=== PATIENT | female | born 1985 | race American Indian/Alaskan Native ===

== ENCOUNTER 2018-11-07 15:16 | Emergency (ER) | payer OTHER ==
[~2018-11-07] VITALS: Ht 152.4 cm; Wt 79.4 kg
[~2018-11-07 15:16] MED LIST: CYCLOBENZAPRINE10 MG PO; NORCO 5-325 TA1 EACH PO; NORCO 7.5-3251 EACH PO
== END 2018-11-07 17:11 | disposition home or self-care (01) ==
LOC: ED 15:16
PROC: 2W3KX1Z Immobilization of Left Finger using Splint (ICD-10-PCS; principal; 2018-11-07)
DX: S61.217A Laceration without foreign body of left little finger without damage to nail, initial encounter (principal); W26.0XXA Contact with knife, initial encounter; Y99.0 Civilian activity done for income or pay
CPT/HCPCS: 29130; 90471; 90715; 99282-25

== ENCOUNTER 2023-06-11 19:05 | Emergency (ER) | payer OTHER ==
[~2023-06-11] VITALS: Ht 152.4 cm; Wt 83.3 kg
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
[~2023-06-11 19:05] MED LIST changes: +IMODIUM A-D2 M2 PO; +ONDANSETRON ODT4 MG PO
[2023-06-11 19:34] LABS: EOSINOPHILS 0.3 % (0-6); HEMOGLOBIN 11.1 g/dL (12.0-18.0); LYMPHOCYTES 33.6 % (24-44); MCH 21.5 (27-36); MCHC 30.8 g/dl (30-36); MCV 69.8 fl (81-99); MONOCYTES 6.2 % (0-12); NEUTROPHILS 58.9 % (39-80); PLATELET COUNT 502 K/uL (140-440); RBC 5.15 M/ul (4.3-5.7); RDW 23.9 (10.5-15.0)
[2023-06-11 19:47] LABS: ALBUMIN 3.4 g/dL (3.4-5.0); ALBUMIN/GLOBULIN RATIO 0.81 (1.1-2.4); ANION GAP 18.2 (7-21); BILIRUBIN, TOTAL 0.4 ng/dL (0.2-1.0); BUN/CREATININE RATIO 3.52 (6.0-28.6); CALCIUM 8.6 mg/dL (8.5-10.1); CREATININE, SERUM 0.85 mg/dL (0.55-1.02); MAGNESIUM 1.4 mg/dL (1.8-2.4); POTASSIUM 3.2 mmol/L (3.5-5.1); PROTEIN, TOTAL 7.6 g/dL (6.4-8.2)
[2023-06-11 21:36] LABS: BILIRUBIN, URINE NEGATIVE (negative); BLOOD/HGB, URINE SMALL (Negative); KETONE, URINE NEGATIVE (Negative); LEUK ESTERASE, URINE NEGATIVE (negative); NITRITE, URINE NEGATIVE (negative)
[2023-06-11 21:54] VITALS: BP 127/72
== END 2023-06-11 21:55 | disposition home or self-care (01) ==
LOC: ED 19:05
PROVIDERS: Internal Medicine
DX: E86.0 Dehydration (principal); E83.42 Hypomagnesemia; Z79.899 Other long term (current) drug therapy
CPT/HCPCS: 36415; 80053; 81003; 82553; 83735; 85025; J1790; J2405; J3411; J7030; J7121

== ENCOUNTER 2023-06-14 20:01 | Emergency (ER) | payer OTHER ==
[~2023-06-14] VITALS: Ht 152.4 cm; Wt 83.0 kg
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
--- OUTSIDE RECORDS SUMMARY | 2023-06-14 20:11 | XMS ---
PreManage Notification: GLADIS CHING Security Sponge Maker Events No recent Security Events currently on file CRITERIA MET - [facility] - 2 Visits in 30 Days CARE PROVIDERS There are no care providers on record at this time. Edy has no Care Guidelines for this patient. [facility] (12 MO.) [facility] T[facility] NOTE: Visits indicate total known visits. ED/C VISIT TRACKING (12 MO.) [facility] COMPLAINT: - NAUSEA 06/11/2023 19:06 [facility] TYPE: Emergency COMPLAINT: - DEHYDRATED DIAGNOSES: - Dehydration - Hypomagnesemia - Nausea with vomiting, unspecified - Other terminologist (current) drug therapy 04/21/2023 09:09 [facility] TYPE: Emergency COMPLAINT: - VOMITING DIAGNOSES: - Contact with and (suspected) exposure to COVID-19 - Diarrhea, unspecified - Vomiting, unspecified INPATIENT VISIT TRACKING (12 MO.) No inpatient visits to display in this time frame [email or web address]
[2023-06-14 22:23] LABS: BASOPHILS 1.2 % (0-2); EOSINOPHILS 0.7 % (0-6); HEMATOCRIT 36.6 % (35.0-50.0); HEMOGLOBIN 11.1 g/dL (12.0-18.0); LYMPHOCYTES 22.4 % (24-44); MCH 21.4 (27-36); MCHC 30.2 g/dl (30-36); MCV 70.9 fl (81-99); MONOCYTES 7.8 % (0-12); NEUTROPHILS 67.9 % (39-80); PLATELET COUNT 501 K/uL (140-440); RBC 5.17 M/ul (4.3-5.7); RDW 24.5 (10.5-15.0)
[2023-06-14 22:31] LABS: PROTIME 12.7 Sec (11.2-14.2)
[2023-06-14 22:36] LABS: ALBUMIN 3.4 g/dL (3.4-5.0); ALBUMIN/GLOBULIN RATIO 0.83 (1.1-2.4); ANION GAP 18.8 (7-21); BILIRUBIN, TOTAL 0.4 ng/dL (0.2-1.0); BUN/CREATININE RATIO 2.73 (6.0-28.6); CALCIUM 8.6 mg/dL (8.5-10.1); CREATININE, SERUM 0.73 mg/dL (0.55-1.02); MAGNESIUM 1.7 mg/dL (1.8-2.4); POTASSIUM 2.8 mmol/L (3.5-5.1); PROTEIN, TOTAL 7.5 g/dL (6.4-8.2)
[2023-06-14] MEDS ORDERED: MAGNESIUM OXID400 M1 PO (22:45)
[2023-06-14] MEDS ORDERED: CHLORDIAZEPOXID10 MG PO (22:45)
[2023-06-14] MEDS ORDERED: ONDANSETRON ODT8 MG PO (22:45)
[2023-06-14] MEDS ORDERED: K-TAB ER20 MEQ PO (22:45)
[2023-06-15 01:05] VITALS: BP 148/92
== END 2023-06-15 01:07 | disposition home or self-care (01) ==
LOC: ED 20:01
PROVIDERS: Family Medicine
DX: F10.239 Alcohol dependence with withdrawal, unspecified (principal); Y90.9 Presence of alcohol in blood, level not specified
CPT/HCPCS: 36415; 80053; 83690; 83735; 84703; 85025; 85060; 85610; 96374; 96375; 99284-25; A9270; J1885; J2060; J2405; J3411; J3475; J3480; J7030

== ENCOUNTER 2024-04-18 09:59 | Emergency (ER) | payer OTHER ==
[~2024-04-18] VITALS: Ht 152.4 cm; Wt 89.8 kg
[~2024-04-18 09:59] MED LIST changes: +CHLORDIAZEPOXID10 MG PO; +HYDROXYZINE PAM50 MG PO; +K-TAB ER20 MEQ PO; +MAGNESIUM OXID400 M1 PO; +NALTREXONE HCL50 MG PO; +ONDANSETRON ODT8 MG PO
[2024-04-18 12:17] VITALS: BP 130/85
[2024-04-18] MEDS ORDERED: HYDROXYZINE HCL25 MG PO (12:25)
[2024-04-18] MEDS ORDERED: hydrOXYzine pamoate 25 MG CAP PO ONE (12:30)
== END 2024-04-18 12:17 | disposition home or self-care (01) ==
LOC: ED 09:59
DX: F41.9 Anxiety disorder, unspecified (principal); Z79.899 Other long term (current) drug therapy
CPT/HCPCS: 99281

== ENCOUNTER 2024-12-17 17:58 | Emergency (ER) | payer OTHER ==
[~2024-12-17] VITALS: Ht 152.4 cm; Wt 87.5 kg
[~2024-12-17 17:58] MED LIST changes: +HYDROXYZINE HCL25 MG PO
--- OUTSIDE RECORDS SUMMARY | 2024-12-17 18:04 | XMS ---
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 Edy has no Care Guidelines for this patient. [facility]mar[facility] (12 MO.) [facility] NOTE: Visits indicate total known visits. 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
[2024-12-17 18:56] LABS: BASOPHILS 0.4 % (0-2); EOSINOPHILS 0.6 % (0-6); HEMATOCRIT 32.6 % (35.0-50.0); HEMOGLOBIN 10.7 g/dL (12.0-18.0); LYMPHOCYTES 21.2 % (24-44); MCH 24.1 (27-36); MCHC 32.9 g/dl (30-36); MCV 73.2 fl (81-99); MONOCYTES 6.6 % (0-12); NEUTROPHILS 71.2 % (39-80); PLATELET COUNT 357 K/uL (140-440); RBC 4.45 M/ul (4.3-5.7); RDW 18.2 (10.5-15.0)
[2024-12-17 19:22] LABS: ALBUMIN 2.9 g/dL (3.4-5.0); ALBUMIN/GLOBULIN RATIO 0.69 (1.1-2.4); ANION GAP 12.6 (7-21); BILIRUBIN, TOTAL 1.1 mg/dL (0.2-1.0); BUN/CREATININE RATIO 4.83 (6.0-28.6); CALCIUM 8.6 mg/dL (8.5-10.1); CREATININE, SERUM 0.62 mg/dL (0.55-1.02); POTASSIUM 3.6 mmol/L (3.5-5.1); PROTEIN, TOTAL 7.1 g/dL (6.4-8.2)
[2024-12-17 20:29] VITALS: BP 150/98
--- NOTE | 2024-12-18 16:31 | EKG ---
[facility] [address] [place] [address] Signed Normal sinus rhythm Low voltage QRS Borderline ECG No previous ECGs available Confirmed by Machelle Mao MD () on 12/18/2024 4:31:32 PM Electronically Signed By: MACHELLE MAO MD 12/18/24 1631 PATIENT NAME: GLADIS CHING Electrocardiogram DATE OF : 85 PHYSICIAN: MACHELLE MAO MD REPORT #: [id number] REPORT IS CONFIDENTIAL AND NOT TO BE RELEASED WITHOUT AUTHORIZATION
== END 2024-12-17 20:29 | disposition home or self-care (01) ==
LOC: ED 17:58
PROVIDERS: Emergency Medicine
DX: M79.10 Myalgia, unspecified site (principal); D64.9 Anemia, unspecified
CPT/HCPCS: 36415; 80053; 82550; 84484; 85025; 93005; 93010; 99283

== ENCOUNTER 2025-06-30 19:16 | Emergency (ER) | payer OTHER ==
[~2025-06-30] VITALS: Ht 152.4 cm; Wt 78.0 kg
--- OUTSIDE RECORDS SUMMARY | 2025-06-30 19:24 | XMS ---
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 Edy has no Care Guidelines for this patient. Jeanmarie VISIT COUNT (12 MO.) 3 [facility] TOTAL 3 NOTE: Visits indicate total known visits. ED/C VISIT TRACKING (12 MO.) 06/30/2025 19:17 [facility] TYPE: Emergency COMPLAINT: - BODY CRAMPS 12/17/2024 17:58 [facility] TYPE: Emergency COMPLAINT: - BODY CRAMPS DIAGNOSES: - Anemia, unspecified - Myalgia, unspecified site 12/05/2024 13:57 [facility] TYPE: Emergency COMPLAINT: - ABDOMINAL PAIN INPATIENT VISIT TRACKING (12 MO.) No inpatient visits to display in this time frame [id number]
[2025-06-30] MEDS ORDERED: LACTATED RINGER'S 1,000 ML IV ONE (19:45)
[2025-06-30] MEDS ORDERED: MORPHINE SULFATE 4 MG/ML VIAL IV ONE (20:00)
[2025-06-30 20:04] LABS: BASOPHILS 0.7 % (0.1-1.2); EOSINOPHILS 0.5 % (0.7-5.8); LYMPHOCYTES 30.2 % (19.3-51.7); MCH 22.2 PG (25.6-32.2); MCHC 30.7 g/dL (32.2-35.5); MCV 72.4 fL (79.4-94.8); MONOCYTES 7.3 % (4.7-12.5); NEUTROPHILS 61.1 % (34.0-71.1); RBC 3.51 M/uL (3.93-5.22)
[2025-06-30 20:23] LABS: ALT (SGPT) 24.0 U/L (14-59); AST (SGOT) 89.0 U/L (15-37); GLOMERULAR FILTRATION RATE,EST 112.0 mL/min (>60); PROTEIN, TOTAL 7.3 g/dL (6.4-8.2); UREA NITROGEN 3.0 mg/dL (7-18)
[2025-06-30] MEDS ORDERED: FERROUS SULFAT325 M2 PO (21:07)
[2025-06-30] MEDS ORDERED: VITAMIN C500 M4 PO (21:07)
[2025-06-30] MEDS ORDERED: COLACE100 MG PO (21:07)
[2025-06-30] MEDS ORDERED: ASCORBIC ACID 250 MG TABLET PO ONE (21:15)
[2025-06-30] MEDS ORDERED: FERROUS SULFATE 325 MG TAB PO ONE (21:15)
[2025-06-30 21:18] LABS: BLOOD/HGB, URINE NEGATIVE (Negative); KETONE, URINE NEGATIVE (Negative); LEUK ESTERASE, URINE NEGATIVE (negative); NITRITE, URINE POSITIVE (negative)
[2025-06-30 21:23] LABS: ABO O; ANTIBODY SCREEN NEGATIVE; RH POSITIVE
[2025-06-30 21:23] LABS: EPITHELIAL CELLS, URINE SQUAMOUS 2+ /lpf (0-1+)
[2025-06-30 21:24] LABS: CRYSTALS, URINE NONE SEEN (0-1+)
[2025-06-30 21:25] LABS: BACTERIA, URINE 2+ /hpf (negative); CASTS, URINE NONE SEEN \\lpf; REFLEX CULTURE, URINE No (No)
[2025-06-30] MEDS ORDERED: ASCORBIC ACID 500 MG TAB ONE (21:25)
[2025-06-30] MEDS ORDERED: MACROBID 100 M100 MG PO (21:26)
[2025-06-30] MEDS ORDERED: NITROFURANTOIN MONOHYD MACROCR 100 MG HOME.PACK PO ONE (21:30)
[2025-06-30 21:48] VITALS: BP 124/87
== END 2025-06-30 21:48 | disposition home or self-care (01) ==
LOC: ED 19:16
PROVIDERS: Family Medicine
DX: D64.9 Anemia, unspecified (principal); N39.0 Urinary tract infection, site not specified
CPT/HCPCS: 36415; 80053; 81001; 83735; 85025; 86850; 86900; 86901; 96361; 96374; 99284-25; J2270; J7121

== ENCOUNTER 2025-08-22 23:05 | Emergency (ER) | payer OTHER ==
[~2025-08-22] VITALS: Ht 152.4 cm; Wt 80.6 kg
--- OUTSIDE RECORDS SUMMARY | ~2025-08-22 | XMS | Continuity of Care Document ---
Demographics + + + | Address | [address] | | | [place] [address] | + + + | Preferred Language | Unknown | + + + | Marital Status | Never | + + + | Confucianism Affiliation | Unknown | + + + | Race | or | + + + | Ethnic Group | Not or | + + + Author + + + | Author | [place] | + + + | Organization | [place] | + + + | Address | [address] | | | [place] [address] | + + + | Phone | | + + + Care Team Providers + + + + | Care Relay Operator Name | Role | Phone | + + + + Unavailable | Unavailable | + + + + Unavailable | Unavailable | + + + + Allergies No information. Encounters No information. Functional Status No information. Immunizations No information. Medications + + + + | date | description | facility | + + + + | 2025-06-30 00:00 | DOCUSATE SODIUM | [facility] | | | | [facility] | + + + + | 2025-06-30 00:00 | Ferrous Sulfate | [facility] | | | | [facility] | + + + + | 2025-06-30 00:00 | NITROFURANTOIN MONOHYD | [facility] | | | MACROCR | [facility] | + + + + | 2025-06-30 00:00 | ASCORBATE CALCIUM | [facility] | | | | [facility] | + + + + | (no date) | HYDROCODONE | [facility] | | | BIT/ACETAMINOPHEN | [facility] | + + + + Problems + + + + | date | description | facility | + + + + | 2025-06-30 00:00 | Urinary tract infection | [facility] | | | | [facility] | + + + + Procedures No information. Results/Labs +--------+--------+ +---------+--------+---------+ | test | date | facility | value | unit | notes | +--------+--------+ +---------+--------+---------+ + + | Result panel 1 | + + + + + +--------+ + + | WBC # Bld | 2025-06-30 | | 6.13 | (missing) | (missing) | | Auto | 19:58:07 | [facility] | | | | + + + +--------+ + + + + | Result panel 2 | + + + + + +--------+ + + | Lymphocytes | 2025-06-30 | | 30.2 | (missing) | (missing) | | NFr Bld | 19:58:07 | [facility] | | | | | Auto | [facility] | | | | + + + +--------+ + + + + | Result panel 3 | + + + + + +-------+ + + | Monocytes | 2025-06-30 | | 7.3 | (missing) | (missing) | | NFr Bld Auto | 19:58:07 | [facility] | | | | + + + +-------+ + + + + | Result panel 4 | + + + + + +-------+ + + | Eosinophil | 2025-06-30 | | 0.5 | (missing) | (missing) | | NFr Bld Auto | 19:58:07 | [facility] | | | | + + + +-------+ + + + + | Result panel 5 | + + + + + +-------+ + + | Basophils | 2025-06-30 | | 0.7 | (missing) | (missing) | | NFr Bld Auto | 19:58:07 | [facility] | | | | + + + +-------+ + + + + | Result panel 6 | + + + + + +--------+ + + | RBC # Bld | 2025-06-30 | | 3.51 | (missing) | (missing) | | Auto | 19:58:07 | [facility] | | | | + + + +--------+ + + + + | Result panel 7 | + + + + + +-------+ + + | Hgb | 2025-06-30 | | 7.8 | (missing) | (missing) | | Bld-mCnc | 19:58:07 | [facility] | | | | + + + +-------+ + + + + | Result panel 8 | + + + + + +-------+---------+ + | Glucose | 2025-06-30 | | 110 | mg/dL | (missing) | | [facility] | 19:58:07 | [facility] | | | | + + + +-------+---------+ + + + | Result panel 9 | + + + + + +-----+---------+ + | BUN | 2025-06-30 | | 3 | mg/dL | (missing) | | [facility] | 19:58:07 | [facility] | | | | + + + +-----+---------+ + + + | Result panel 10 | + + + + + +--------+---------+ + | Creat | 2025-06-30 | | 0.70 | mg/dL | (missing) | | [facility] | 19:58:07 | [facility] | | | | + + + +--------+---------+ + + + | Result panel 11 | + + + + + +-------+ + + | eGFRcr | 2025-06-30 | | 112 | (missing) | (missing) | | SerPlBld | 19:58:07 | [facility] | | | | | CKD-EPI 2020 | [facility] | | | | + + + +-------+ + + + + | Result panel 12 | + + + + + +--------+ + + | BUN/Creat | 2025-06-30 | | 4.28 | (missing) | (missing) | | SerPl | 19:58:07 | [facility] | | | | + + + +--------+ + + + + | Result panel 13 | + + + + + +-------+ + + | Sodium | 2025-06-30 | | 141 | (missing) | (missing) | | SerPl-sCnc | 19:58:07 | [facility] | | | | + + + +-------+ + + + + | Result panel 14 | + + + + + +--------+ + + | Hct VFr.DF | 2025-06-30 | | 25.4 | (missing) | (missing) | | Bld Auto | 19:58:07 | [facility] | | | | + + + +--------+ + + + + | Result panel 15 | + + + + + +-------+ + + | Potassium | 2025-06-30 | | 3.3 | (missing) | (missing) | | SerPl-sCnc | 19:58:07 | [facility] | | | | + + + +-------+ + + + + | Result panel 16 | + + + + + +-------+ + + | Chloride | 2025-06-30 | | 108 | (missing) | (missing) | | SerPl-sCnc | 19:58:07 | [facility] | | | | + + + +-------+ + + + + | Result panel 17 | + + + + + +------+ + + | CO2 | 2025-06-30 | | 22 | (missing) | (missing) | | SerPl-sCn | 19:58:07 | [facility] | | | | + + + +------+ + + + + | Result panel 18 | + + + + + +--------+ + + | Anion Gap | 2025-06-30 | | 14.3 | (missing) | (missing) | | SerPl | 19:58:07 | [facility] | | | | | Calculated.4 | [facility] | | | | + + + +--------+ + + + + | Result panel 19 | + + + + + +-------+---------+ + | Calcium | 2025-06-30 | | 8.6 | mg/dL | (missing) | | [facility] | 19[facility]58[facility]07 | [facility] | | | | + + + +-------+---------+ + + + | Result panel 20 | + + + + + +-------+---------+ + | Magnesium | 2025-06-30 | | 1.8 | mg/dL | (missing) | | SerPl-mCnc | 19:58:07 | [facility] | | | | + + + +-------+---------+ + + + | Result panel 21 | + + + + + +-------+ + + | Prot | 2025-06-30 | | 7.3 | (missing) | (missing) | | Joshual-mCgale | 19:58:07 | [facility] | | | | + + + +-------+ + + + + | Result panel 22 | + + + + + +-------+ + + | Albumin | 2025-06-30 | | 2.7 | (missing) | (missing) | | Vinicius-Ema | 19:58:07 | [facility] | | | | + + + +-------+ + + + + | Result panel 23 | + + + + + +-------+ + + | Globulin | 2025-06-30 | | 4.6 | (missing) | (missing) | | Ser-gale | 19:58:07 | [facility] | | | | + + + +-------+ + + + + | Result panel 24 | + + + + + +--------+ + + | | 2025-06-30 | | 0.59 | (missing) | (missing) | | Albumin/Glob | 19:58:07 | [facility] | | | | | SerPl | [facility] | | | | + + + +--------+ + + + + | Result panel 25 | + + + + + +--------+ + + | RBC Auto | 2025-06-30 | | 72.4 | (missing) | (missing) | | | 19:58:07 | [facility] | | | | + + + +--------+ + + + + | Result panel 26 | + + + + + +-------+---------+ + | Bilirub | 2025-06-30 | | 0.9 | mg/dL | (missing) | | Vinicius-Ema | 19:58:07 | [facility] | | | | + + + +-------+---------+ + + + | Result panel 27 | + + + + + +------+ + + | AST | 2025-06-30 | | 89 | (missing) | (missing) | | [facility] | 19:58:07 | [facility] | | | | + + + +------+ + + + + | Result panel 28 | + + + + + +------+ + + | ALT | 2025-06-30 | | 24 | (missing) | (missing) | | [facility] | 19:58:07 | [facility] | | | | + + + +------+ + + + + | Result panel 29 | + + + + + +-------+ + + | ALP | 2025-06-30 | | 202 | (missing) | (missing) | | SerPl-cCnc | 19:58:07 | [facility] | | | | + + + +-------+ + + + + | Result panel 30 | + + + + + +--------+ + + | MCH RBC Qn | 2025-06-30 | | 22.2 | (missing) | (missing) | | Auto | 19:58:07 | [facility] | | | | + + + +--------+ + + + + | Result panel 31 | + + + + + +--------+ + + | MCHC RBC | 2025-06-30 | | 30.7 | (missing) | (missing) | | Auto-EntMCnc | 19:58:07 | [facility] | | | | + + + +--------+ + + + + | Result panel 32 | + + + + + +-------+ + + | Platelet # | 2025-06-30 | | 340 | (missing) | (missing) | | Bld Auto | 19:58:07 | [facility] | | | | + + + +-------+ + + + + | Result panel 33 | + + + + + +--------+ + + | Neutrophils | 2025-06-30 | | 61.1 | (missing) | (missing) | | NFr Bld | 19:58:07 | [facility] | | | | | Auto | [facility] | | | | + + + +--------+ + + + + | Result panel 34 | + + + + + +-----+ + + | ABO Group | 2025-06-30 | | O | (missing) | (missing) | | Bld | 20:44:07 | [facility] | | | | + + + +-----+ + + + + | Result panel 35 | + + + + + + + + + | Rh Bld | 2025-06-30 | | POSITIVE | (missing) | (missing) | | | 20:44:07 | [facility] | | | | + + + + + + + + + | Result panel 36 | + + + + + + + + + | IAT Poly-Sp | 2025-06-30 | | NEGATIVE | (missing) | (missing) | | Reag SerPl | 20:44:07 | [facility] | | | | | Ql | [facility] | | | | + + + + + + + + + | Result panel 37 | + + + + + + + + + | Transf Band | 2025-06-30 | | BLOOD IN | (missing) | (missing) | | Num Patient | 20:44:07 | [facility] | LAB [facility] | | | | + + + + + + + + + | Result panel 38 | + + + + + + + + + | Color Ur | 2025-06-30 | | YELLOW | (missing) | (missing) | | Auto | 21:13:07 | [facility] | [facility] | | [facility] | | | | + + + + + + + + + | Result panel 39 | + + + + + +---------+ + + | Character | 2025-06-30 | | CLEAR | (missing) | (missing) | | Ur | 21:13:07 | [facility] | | | | + + + +---------+ + + + + | Result panel 40 | + + + + + + + + + | Glucose Ur | 2025-06-30 | | NEGATIVE | (missing) | (missing) | | Ql Strip | 21:13:07 | [facility] | | | | + + + + + + + + + | Result panel 41 | + + + + + + + + + | Bilirub Ur | 2025-06-30 | | NEGATIVE | (missing) | (missing) | | Ql Strip | 21:13:07 | [facility] | | | | + + + + + + + + + | Result panel 42 | + + + + + + + + + | Ketones Ur | 2025-06-30 | | NEGATIVE | (missing) | (missing) | | Ql Strip | 21:13:07 | [facility] | | | | + + + + + + + + + | Result panel 43 | + + + + + + + + + | Sp Pablo Castillo | 2025-06-30 | | <=1.005 | (missing) | (missing) | | Strip | 21:13:07 | [facility] | | | | + + + + + + + + + | Result panel 44 | + + + + + + + + + | Hgb Ur Ql | 2025-06-30 | | NEGATIVE | (missing) | (missing) | | Strip | 21:13:07 | [facility] | | | | + + + + + + + + + | Result panel 45 | + + + + + +-------+ + + | pH Ur Strip | 2025-06-30 | | 7.0 | (missing) | (missing) | | | 21:13:07 | [facility] | | | | | | | - | | | | | | | [facility] | | | | + + + +-------+ + + + + | Result panel 46 | + + + + + + + + + | Prot Ur | 2025-06-30 | | NEGATIVE | (missing) | (missing) | | Strip-mCnc | 21:13:07 | [facility] | [facility] | | | | + + + + + + + + + | Result panel 47 | + + + + + + + + + | | 2025-06-30 | | NORMAL | (missing) | (missing) | | Urobilinogen | 21:13:07 | [facility] | | | | | Ur | [facility]-m[facility]nc | [facility] | | | | + + + + + + + + + | Result panel 48 | + + + + + + + + + | Nitrite Ur | 2025-06-30 | | POSITIVE | (missing) | (missing) | | Ql Strip | 21:13:07 | [facility] | | | | [facility] | | | | + + + + + + + + + | Result panel 49 | + + + + + + + + + | Leukocyte | 2025-06-30 | | NEGATIVE | (missing) | (missing) | | esterase Ur | 21:13:07 | [facility] | | | | | Ql Strip | [facility] | | | | + + + + + + + + + | Result panel 50 | + + + + + +-------+ + + | RBC #/area | 2025-06-30 | | 0-1 | (missing) | (missing) | | UrnS HPF | 21:13:07 | [facility] | | | | | [facility] | | | | + + + +-------+ + + + + | Result panel 51 | + + + + + +-------+ + + | WBC #/area | 2025-06-30 | | 4-6 | (missing) | (missing) | | [facility] | 21:13:07 | [facility] | [facility] | | | | + + + +-------+ + + + + | Result panel 52 | + + + + + + + + + | Epi Cells | 2025-06-30 | | SQUAMOUS 2+ | (missing) | (missing) | | #/area UrnS | 21:13:07 | [facility] | | | | | HPF | [facility] | | | | + + + + + + + + + | Result panel 53 | + + + + + + + + + | Crystals | 2025-06-30 | | NONE SEEN | (missing) | (missing) | | UrnS Micro | 21:13:07 | [facility] | | | | | | [facility] | | | | + + + + + + + + + | Result panel 54 | + + + + + +------+ + + | Bacteria | 2025-06-30 | | 2+ | (missing) | (missing) | | #/area UrnS | 21:13:07 | [facility] | | | | | HPF | [facility] | | | | + + + +------+ + + + + | Result panel 55 | + + + + + + + + + | Casts | 2025-06-30 | | NONE SEEN | (missing) | (missing) | | #/area UrnS | 21:13:07 | [facility] | | | | | LPF | [facility] | | | | + + + + + + + + + | Result panel 56 | + + + + + +------+ + + | Bacteria Ur | 2025-06-30 | | No | (missing) | (missing) | | Cult | 21:13:07 | [facility] | | | | | | [facility] | | | | + + + +------+ + + + + | Result panel 57 | + + + + + + + + + | Urn Spec | 2025-06-30 | | CLEAN CATCH | (missing) | (missing) | | Collect Meth | 21:13:07 | [facility] | | | | | Ur | [facility] | | | | + + + + + + + Social History +--------+ + + | date | description | facility | +--------+ + + Vital Signs + + + +---------+ | date | measurement | value | units | + + + +---------+ | 2025-06-30 00:00 | BMI | 33.6 | kg/m2 | + + + +---------+ | 2025-06-30 00:00 | BP_diastolic | 87 | mmHg | + + + +---------+ | 2025-06-30 00:00 | BP_systolic | 124 | mmHg | + + + +---------+ | 2025-06-30 00:00 | heart_rate | 82 | /min | + + + +---------+ | 2025-06-30 00:00 | height_metric | 152.4 | cm | + + + +---------+ | 2025-06-30 00:00 | height_standard | 60 | in | + + + +---------+ | 2025-06-30 00:00 | o2_saturation | 100 | % | + + + +---------+ | 2025-06-30 00:00 | respiration_rate | 16 | /min | + + + +---------+ | 2025-06-30 00:00 | | 98.3 | F | | | temperature_standar | | | | | d | | | + + + +---------+ | 2025-06-30 00:00 | weight_metric | 78.001 | kg | + + + +---------+ | 2025-06-30 00:00 | weight_standard | 171.962 | lb | + + + +---------+"
[~2025-08-22 23:05] MED LIST changes: +COLACE100 MG PO; +FERROUS SULFAT325 M2 PO; +MACROBID 100 M100 MG PO; +VITAMIN C500 M4 PO
--- OUTSIDE RECORDS SUMMARY | 2025-08-22 23:07 | XMS ---
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 Edy has no Care Guidelines for this patient. Jeanmarie VISIT COUNT (12 MO.) 4 [facility] TOTAL 4 NOTE: Visits indicate total known visits. ED/C VISIT TRACKING (12 MO.) 08/22/2025 23:05 [facility] TYPE: Emergency COMPLAINT: - FALL 06/30/2025 19:17 [facility] TYPE: Emergency COMPLAINT: - BODY CRAMPS DIAGNOSES: - Anemia, unspecified - Other fatigue - Urinary tract infection, site not specified 12/17/2024 17:58 [facility] TYPE: Emergency COMPLAINT: - BODY CRAMPS DIAGNOSES: - Anemia, unspecified - Myalgia, unspecified site 12/05/2024 13:57 [facility] TYPE: Emergency COMPLAINT: - ABDOMINAL PAIN INPATIENT VISIT TRACKING (12 MO.) No inpatient visits to display in this time frame [id number]
[2025-08-22] MEDS ORDERED: LACTATED RINGER'S 1,000 ML IV ONE (23:15)
[2025-08-22] MEDS ORDERED: THIAMINE HCL 200 MG/2 ML VIAL IV ONE (23:15)
[2025-08-23 00:33] LABS: BASOPHILS 0.3 % (0.1-1.2); EOSINOPHILS 0.4 % (0.7-5.8); LYMPHOCYTES 38.7 % (19.3-51.7); MCH 25.4 PG (25.6-32.2); MCHC 31.2 g/dL (32.2-35.5); MCV 81.5 fL (79.4-94.8); MONOCYTES 6.2 % (4.7-12.5); NEUTROPHILS 54.2 % (34.0-71.1); RBC 3.62 M/uL (3.93-5.22)
[2025-08-23 00:47] LABS: ALCOHOL, MEDICAL 430.0 ng/dL (<3); ALT (SGPT) 22.0 U/L (14-59); AST (SGOT) 108.0 U/L (15-37); GLOMERULAR FILTRATION RATE,EST 123.0 mL/min (>60); PROTEIN, TOTAL 7.6 g/dL (6.4-8.2); UREA NITROGEN 3.0 mg/dL (7-18)
[2025-08-23 02:22] LABS: LACTIC ACID, BLOOD 3.0 mmol/L (0.4-2.0)
[2025-08-23] MEDS ORDERED: LACTATED RINGER'S 1,000 ML IV ONE (02:30)
[2025-08-23 03:09] LABS: BLOOD/HGB, URINE MODERATE (Negative); KETONE, URINE NEGATIVE (Negative); LEUK ESTERASE, URINE NEGATIVE (negative); NITRITE, URINE NEGATIVE (negative)
[2025-08-23 03:23] LABS: CORONAVIRUS COVID-19 AG NEGATIVE (NEGATIVE)
[2025-08-23 03:23] LABS: AMPHETAMINES, URINE NEGATIVE (NEGATIVE); BARBITURATES, URINE NEGATIVE (NEGATIVE); BENZODIAZEPINE, URINE NEGATIVE (NEGATIVE); CANNABINOID, URINE NEGATIVE (NEGATIVE); COCAINE, URINE NEGATIVE (NEGATIVE); ECSTASY, URINE NEGATIVE (NEGATIVE); FENTANYL, URINE NEGATIVE (NEGATIVE); METHADONE, URINE NEGATIVE (NEGATIVE); OPIATES, URINE NEGATIVE (NEGATIVE); OXYCODONE, URINE NEGATIVE (NEGATIVE); PHENCYCLIDINE, URINE NEGATIVE (NEGATIVE)
[2025-08-23 03:26] LABS: BACTERIA, URINE 1+ /hpf (negative); CASTS, URINE NONE SEEN \\lpf; CRYSTALS, URINE NONE SEEN (0-1+); EPITHELIAL CELLS, URINE SQUAMOUS 2+ /lpf (0-1+); REFLEX CULTURE, URINE No (No)
[2025-08-23] MEDS ORDERED: ZITHROMAX250 MG PO (05:22)
[2025-08-23 07:40] VITALS: BP 127/70
== END 2025-08-23 07:35 | disposition home or self-care (01) ==
LOC: ED 23:05
PROVIDERS: Internal Medicine
DX: S00.03XA Contusion of scalp, initial encounter (principal); F10.129 Alcohol abuse with intoxication, unspecified; E86.0 Dehydration; Z79.899 Other long term (current) drug therapy; W18.30XA Fall on same level, unspecified, initial encounter
CPT/HCPCS: 36415; 70450; 71045; 72125; 80053; 80307; 81001; 83605; 83880; 84703; 85025; 85060; 87040; 96361; 96365; 96375; 99284-25; G0480; J0696; J3411; J7121

== ENCOUNTER 2025-09-13 23:34 | Emergency (ER) | payer OTHER ==
[~2025-09-13] VITALS: Ht 152.4 cm; Wt 73.1 kg
--- OUTSIDE RECORDS SUMMARY | ~2025-09-13 | XMS | Continuity of Care Document ---
Demographics + + + | Address | [address] | | | [place] [address] | + + + | Preferred Language | Unknown | + + + | Marital Status | Never | + + + | Mormonism Affiliation | Unknown | + + + | Race | or | + + + | Ethnic Group | Not or | + + + Author + + + | Author | [facility] | + + + | Organization | [facility] | + + + | Address | [address] | | | [place] [address] | + + + | Phone | | + + + Care Team Providers + + + + | Care High School Counselor Name | Role | Phone | + + + + Unavailable | Unavailable | + + + + Unavailable | Unavailable | + + + + Allergies No information. Encounters No information. Functional Status No information. Immunizations No information. Medications + + + + | date | description | facility | + + + + | 2025-06-30 00:00 | DOCUSATE SODIUM | [facility] | | | | [facility] | + + + + | 2025-06-30 00:00 | Ferrous Sulfate | [facility] | | | | [facility] | + + + + | 2025-06-30 00:00 | NITROFURANTOIN MONOHYD | [facility] | | | MACROCR | [facility] | + + + + | 2025-06-30 00:00 | ASCORBATE CALCIUM | [facility] | | | | [facility] | + + + + | (no date) | HYDROCODONE | [facility] | | | BIT/ACETAMINOPHEN | [facility] | + + + + Problems + + + + | date | description | facility | + + + + | 2025-06-30 00:00 | Urinary tract infection | [facility] | | | | [facility] | + + + + Procedures No [...] 0.70 | mg/dL | (missing) | | [facility] | 19:58:07 | [facility] | | [...] 8.6 | mg/dL | (missing) | | [facility] | 19:58:07 | [facility] | | [...] 24 | (missing) | (missing) | | Ser[facility] | 19:58:07 | [facility] | | | [...] | (missing) | (missing) | | [facility] | 21:13:07 | [facility] | | | [...]
[~2025-09-13 23:34] MED LIST changes: +ZITHROMAX250 MG PO
--- OUTSIDE RECORDS SUMMARY | 2025-09-13 23:40 | XMS ---
PreManage Notification: GLADIS CHING Security [employer] Tor[employer] Solderer Events No recent Security Events currently on file CRITERIA MET - Group Notification - [facility] - 2 Visits in 30 Days CARE PROVIDERS There are no care providers on record at this time. Edy has no Care Guidelines for this patient. [facility] MO.) [facility] NOTE: Visits indicate total known visits. ED/C VISIT TRACKING (12 MO.) [facility] COMPLAINT: - BODY ACHES 08/22/2025 23:05 [facility] [place] TYPE: Emergency COMPLAINT: - FALL DIAGNOSES: - Alcohol abuse with intoxication, unspecified - Contusion of scalp, initial encounter - Dehydration - Fall on same level, unspecified, initial encounter - Other nursing home (current) drug therapy - Unspecified injury of head, initial encounter 06/30/2025 19:[address] [facility] [place] TYPE: Emergency COMPLAINT: - BODY CRAMPS DIAGNOSES: - Anemia, unspecified - Other fatigue - Urinary tract infection, site not specified 12/17/2024 17:[address] [facility] [place] TYPE: Emergency COMPLAINT: - BODY CRAMPS DIAGNOSES: - Anemia, unspecified - Myalgia, unspecified site 12/05/2024 13:[address] [facility] [place] TYPE: Emergency COMPLAINT: - ABDOMINAL PAIN INPATIENT VISIT TRACKING (12 MO.) No inpatient visits to display in this time frame [email or web address]
[2025-09-14] MEDS ORDERED: LACTATED RINGER'S 1,000 ML IV ONE (00:30)
[2025-09-14 00:45] LABS: BASOPHILS 0.6 % (0.1-1.2); EOSINOPHILS 0.4 % (0.7-5.8); LYMPHOCYTES 20.6 % (19.3-51.7); MCH 25.9 PG (25.6-32.2); MCHC 31.7 g/dL (32.2-35.5); MCV 81.8 fL (79.4-94.8); MONOCYTES 7.3 % (4.7-12.5); NEUTROPHILS 70.7 % (34.0-71.1); RBC 3.51 M/uL (3.93-5.22)
[2025-09-14 01:02] LABS: ALCOHOL, MEDICAL <3 ng/dL (<3); ALT (SGPT) 26 U/L (14-59); AST (SGOT) 155 U/L (15-37); GLOMERULAR FILTRATION RATE,EST 110 mL/min (>60); PROTEIN, TOTAL 7.3 g/dL (6.4-8.2); UREA NITROGEN 4 mg/dL (7-18)
[2025-09-14 01:15] LABS: CORONAVIRUS COVID-19 AG NEGATIVE (NEGATIVE)
[2025-09-14] MEDS ORDERED: ACETAMINOPHEN 500 MG TAB PO ONE (01:45)
[2025-09-14 01:58] LABS: BLOOD/HGB, URINE NEGATIVE (Negative); KETONE, URINE NEGATIVE (Negative); LEUK ESTERASE, URINE NEGATIVE (negative); NITRITE, URINE NEGATIVE (negative)
[2025-09-14 02:08] LABS: BACTERIA, URINE RARE /hpf (negative); CASTS, URINE NONE SEEN \\lpf; CRYSTALS, URINE NONE SEEN (0-1+); EPITHELIAL CELLS, URINE SQUAMOUS 2+ /lpf (0-1+)
[2025-09-14 02:09] LABS: REFLEX CULTURE, URINE No (No)
[2025-09-14 02:11] LABS: AMPHETAMINES, URINE NEGATIVE (NEGATIVE); BARBITURATES, URINE NEGATIVE (NEGATIVE); BENZODIAZEPINE, URINE NEGATIVE (NEGATIVE); CANNABINOID, URINE NEGATIVE (NEGATIVE); COCAINE, URINE NEGATIVE (NEGATIVE); ECSTASY, URINE NEGATIVE (NEGATIVE); FENTANYL, URINE NEGATIVE (NEGATIVE); METHADONE, URINE NEGATIVE (NEGATIVE); OPIATES, URINE NEGATIVE (NEGATIVE); OXYCODONE, URINE NEGATIVE (NEGATIVE); PHENCYCLIDINE, URINE NEGATIVE (NEGATIVE)
[2025-09-14 02:25] VITALS: BP 112/72
== END 2025-09-14 02:26 | disposition home or self-care (01) ==
LOC: ED 23:34
PROVIDERS: Internal Medicine
DX: E86.0 Dehydration (principal); B34.9 Viral infection, unspecified; Z79.899 Other long term (current) drug therapy
CPT/HCPCS: 36415; 71045; 80053; 80307; 81001; 82550; 83690; 85025; 96374; 99283-25; A9270; G0480; J2405; J7121